=== PATIENT | female | born 1970 | race Caucasian/White ===

== ENCOUNTER 2018-05-23 15:37 | Emergency (ER) | payer BC, OTHER ==
[2018-05-23] MEDS: CIPROFLOXACIN 0.3% 5 ML OPH RIGHT EYE (17:18)
[2018-05-23] MEDS: CIPROFLOXACIN 0.3% 2.5 ML OPH RIGHT EYE (17:21)
== END 2018-05-23 17:17 | disposition home or self-care (01) ==
LOC: FTE 15:37
DX: H10.31 Unspecified acute conjunctivitis, right eye (principal)
CPT/HCPCS: 99283